=== PATIENT | male | born 1945 | race Caucasian/White ===

== ENCOUNTER 2016-05-26 18:11 | Emergency (ER) | payer OTHER ==
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
--- NOTE | 2016-05-26 19:57 | ED ORDER SUMMARY ---
..... Patient: YUMI ALEGRE OrderSheet [facility] VisitID: [id number] [place] [address] 70y, M Registration Date/Time: 05/26/2016 ORDER SHEET Weight: 79.3 kg (stated) Allergies: No Known Drug Allergy GENERAL ORDERS: Sternum Urgent (18:33 05/26/2016 HBivens A.R.N.P.) ([facility] Chest 2V Urgent (18:33 05/26/2016 HBivens A.R.N.P.) (Ack 18:40 RKaruga) MEDICATION ORDERS: IV FLUIDS: ORDER SHEET NOTES: [Electronically signed by Cruz Apple R.N. (21:39 05/26/2016)] [Electronically signed by Fabi Gaston.R.N.P. (22:04 05/26/2016)] [Electronically locked/signed by Cruz Apple R.N. (21:39 05/26/2016)]
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
--- NOTE | 2016-05-26 19:57 | ED ORDER SUMMARY ---
..... Patient: YUMI ALEGRE OrderSheet [facility] VisitID: [id number] [place] [address] 70y, M Registration Date/Time: 05/26/2016 ORDER SHEET Weight: 79.3 kg (stated) Allergies: No Known Drug Allergy GENERAL ORDERS: Sternum Urgent (18:33 05/26/2016 HBivens A.R.N.P.) (Ack 18:[facility] Chest 2V Urgent (18:33 05/26/2016 HBivens A.R.N.P.) (Ack 18:40 RKaruga) MEDICATION ORDERS: IV FLUIDS: ORDER SHEET NOTES: [Electronically signed by Cruz Apple R.N. (21:39 05/26/2016)] [Electronically signed by Fabi Gaston.R.N.P. (22:04 05/26/2016)] [Electronically locked/signed by Cruz Apple R.N. (21:39 05/26/2016)]
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
--- NOTE | 2016-05-26 20:03 | DIAGNOSTIC IMAGING REPORT ---
PROCEDURE: XR CHEST 2 VIEW INDICATION: Chest pain. Injury. TECHNIQUE: PA and lateral views. COMPARISON: None. FINDINGS: Status post median sternotomy and coronary artery bypass graft was vascular stents. Heart and mediastinum are normal size. There is mild chronic pleural and parenchymal scarring at the right lung base. Left lung is clear. Thorax is normal IMPRESSION: 1. Status post coronary artery bypass. Status post coronary stent placement. 2. Mild chronic pleural and parenchymal scarring at the right lung base. 3. Comparison with prior outside studies may be of assistance in confirming stability. 4.. Findings discussed with NICKI Ng.
--- NOTE | 2016-05-26 22:04 | ED MAR SUMMARY ---
..... Medication Administration Record [facility] [address], [place] [id number] Patient: YUMI ALEGRE Visit ID: [id number] 70y, M Weight: 79.3 kg Height/Length: 108 in BMI: 10.5 ALLERGIES: No Known Drug Allergy
--- NOTE | 2016-05-26 22:04 | ED MED RECONCILIATION SUMMARY ---
Patient: YUMI ALEGRE Medication Reconciliation Report [facility] VisitID: [id number] [address] [place] [address] 70y, M Registration Date/Time: 05/26/2016 Weight: 79.3 kg Height/Length: 108 in. BMI: 10.5 ALLERGIES: No Known Drug Allergy The patient's Home Medications are listed below: THE FOLLOWING MEDICATIONS NEED TO BE RECONCILED: Aspirin Oral 81mg, 2 x daily Lisinopril Oral Plavix Oral 75 mg, daily Protonix Oral The source(s) of the original Home Medication information: patient The following Medications were given to the patient in the Emergency Department: None. The following Medications were prescribed to the patient: Flexeril 10 mg: Take 1 orally every 8 hours as needed for muscle spasm. Dispense twenty (20). No refills. Substitution is permissible. -- Fabi Gaston, A.R.N.P. Ultram 50 mg tablets: take 1-2 orally every 6 hours as needed for pain. Dispense twenty (20). No refills. Substitution is permissible. -- Fabi Gaston, Jo Ann.R.N.P.
--- NOTE | 2016-05-26 22:04 | ED MAR SUMMARY ---
..... Medication Administration Record [facility] [address] [place], [place] [id number] Patient: YUMI ALEGRE Visit ID: [id number] 70y, M Weight: 79.3 kg Height/Length: 108 in BMI: 10.5 ALLERGIES: No Known Drug Allergy
--- NOTE | 2016-05-26 22:04 | ED MED RECONCILIATION SUMMARY ---
Patient: YUMI ALEGRE Medication Reconciliation Report [facility] VisitID: [id number] [address] [place] [address] 70y, M Registration Date/Time: 05/26/2016 Weight: 79.3 kg Height/Length: 108 in. BMI: 10.5 ALLERGIES: No Known Drug Allergy The patient's Home Medications are listed below: THE FOLLOWING MEDICATIONS NEED TO BE RECONCILED: Aspirin Oral 81mg, 2 x daily Lisinopril Oral Plavix Oral 75 mg, daily Protonix Oral The source(s) of the original Home Medication information: patient The following Medications were given to the patient in the Emergency Department: None. The following Medications were prescribed to the patient: Flexeril 10 mg: Take 1 orally every 8 hours as needed for muscle spasm. Dispense twenty (20). No refills. Substitution is permissible. -- Fabi Gaston, A.R.N.P. Ultram 50 mg tablets: take 1-2 orally every 6 hours as needed for pain. Dispense twenty (20). No refills. Substitution is permissible. -- Fabi Gaston, Jo Ann.R.N.P.
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
== END 2016-05-26 20:05 | disposition home or self-care (01) ==
LOC: ED SRH 18:11
DX: S29.011A Strain of muscle and tendon of front wall of thorax, initial encounter (principal); V43.62XA Car passenger injured in collision with other type car in traffic accident, initial encounter; Y93.I9 Activity, other involving external motion; Y92.410 Unspecified street and highway as the place of occurrence of the external cause; Y99.9 Unspecified external cause status; I10 Essential (primary) hypertension; Z87.891 Personal history of nicotine dependence